=== PATIENT | male | born 1955 | race Caucasian/White ===

== ENCOUNTER 2018-08-22 09:21 | Day surgery (SDC) | payer OTHER ==
[2018-08-21 10:22] VITALS: BMI 32.1
[2018-08-22] MEDS ORDERED: Lidocaine 2% PF 5 ML VIAL ONE (10:30)
[2018-08-22] MEDS ORDERED: Bupivacaine PF 0.5% 30 ML VIAL ONE ×3 (10:30→11:02)
[2018-08-22] MEDS ORDERED: Lidocaine 2% w/Epinephrine 1:200K 20 ML VIAL ONE (10:30)
[2018-08-22] MEDS ORDERED: Bupivacaine/Epinephrine 0.25% 30 ML VIAL ONE (10:30)
[2018-08-22] MEDS ORDERED: Fentanyl 100 MCG/2 ML VIAL ONE ×2 (10:41→11:59)
[2018-08-22] MEDS ORDERED: Levofloxacin 500 mg/D5W 100 ml Premix Bag ONE (10:42)
[2018-08-22] MEDS ORDERED: Promethazine HCl 25 MG/ML VIAL ONE (13:14)
--- NOTE | 2018-08-22 22:08 | OP ---
DATE OF PROCEDURE: 08/22/2018 PREOPERATIVE DIAGNOSIS: Right inguinal hernia. POSTOPERATIVE DIAGNOSIS: Right inguinal hernia. PROCEDURE PERFORMED: Open right inguinal hernia repair with mesh, PHX extended. ANESTHESIA: General. ESTIMATED BLOOD LOSS: Minimal. COMPLICATIONS: None. SPECIMEN: None. FINDINGS: Right inguinal hernia. DESCRIPTION OF PROCEDURE: The patient was taken to the operating room and laid supine on the operating room table. After general anesthetic was obtained, the abdomen and groins were shaved, prepped, and draped in a sterile fashion. An oblique incision was made above the pubic tubercle in the right lower quadrant. Dissection was performed down through Frances's to expose the external oblique. External oblique fibers opened along the course of the external ring. The contents in the inguinal canal were dissected from backside of the external oblique. Ilioinguinal nerve was found and segmentally removed to prevent postop pain. The cord structures were mobilized from the pubic tubercle using a Rita drain. Dissection superiorly and medially on the cord showed to be an indirect hernia sac. This sac was dissected away from the surrounding structures. High ligation was performed using silk. The preperitoneal space was bluntly dissected through the internal ring. PHS extended mesh was brought into the sterile field. The inlay was placed in the internal ring preperitoneal space, its fibers laid out flat against the posterior abdominal wall. The mesh was laid to cover the floor of the inguinal canal. The mesh was cut laterally to incorporate the internal ring. The mesh was sewn distally to the pubic tubercle, medially to the transverse arch, lateral to shelving edge of inguinal ligament using permanent braided suture. The 2 ends of cut mesh were reapproximated at the shelving edge to reform the internal ring. The extra mesh was tacked back down to the external oblique proximally. The wound was irrigated. Local anesthetic was applied. Tunneled catheter for postop pain was started from above the incision, left on top of the mesh. The wounds in the Frances's and external oblique were closed using 3-0 Vicryl. The skin was closed using running 4-0 Monocryl and Dermabond. The patient was sent to Recovery in stable condition. All instrument counts, needle counts, and lap counts were correct. Job ID: [id number]
== END 2018-08-22 14:48 | disposition home or self-care (01) ==
LOC: SDC 09:21
PROVIDERS: ATTEND Surgery
PROC: 0YU50JZ Supplement Right Inguinal Region with Synthetic Substitute, Open Approach (ICD-10-PCS; principal; 2018-08-22)
DX: K40.90 Unilateral inguinal hernia, without obstruction or gangrene, not specified as recurrent (principal); I10 Essential (primary) hypertension; E78.00 Pure hypercholesterolemia, unspecified; Z88.0 Allergy status to penicillin; Z79.82 Long term (current) use of aspirin; Z79.899 Other long term (current) drug therapy
CPT/HCPCS: A4306; C1781; J0131; J1956; J2001; J2550; J3010; S0020